=== PATIENT | female | born 1995 | race Caucasian/White ===

== ENCOUNTER 2017-05-22 14:53 | Emergency (ER) | payer BC ==
[~2017-05-22] VITALS: Ht 157.5 cm; Wt 53.0 kg
[2017-05-22 15:05] VITALS: BP 103/61; PULSE 106; RESP 22; O2SAT 96
[2017-05-22] MEDS ORDERED: diphenhydrAMINE HCL 50 MG/ML VIAL IVP ONE (15:15)
[2017-05-22] MEDS ORDERED: FAMOTIDINE 20 MG/2 ML VIAL IV PUSH ONE (15:15)
[2017-05-22] MEDS ORDERED: EPINEPHrine HCL (1:1000) 1 MG/ML VIAL IM ONE (15:15)
[2017-05-22 15:37] LABS: AUTOMATED NEUTROPHIL # 4.8 TH/MM3 (1.8-7.7); BASOPHIL % 0.6 % (0.0-2.0); EOSINOPHIL # 0.2 TH/MM3 (0-0.4); EOSINOPHIL % 2.7 % (0.0-4.0); HEMATOCRIT 42.7 % (35.0-46.0); HEMOGLOBIN 15.1 GM/DL (11.6-15.3); LYMPH % 32.8 % (9.0-44.0); LYMPHOCYTE # 2.8 TH/MM3 (1.0-4.8); MEAN CELL VOLUME 85.8 FL (80.0-100.0); MEAN CORPUSCULAR HEMOGLOBIN 30.4 PG (27.0-34.0); MEAN CORPUSCULAR HGB CONC 35.4 % (32.0-36.0); MONO % 6.9 % (0.0-8.0); MONOCYTE # 0.6 TH/MM3 (0-0.9); PLATELET COUNT 192 TH/MM3 (150-450); RED BLOOD COUNT 4.98 MIL/MM3 (4.00-5.30); RED CELL DISTRIBUTION WIDTH 12.5 % (11.6-17.2); WHITE BLOOD COUNT 8.5 TH/MM3 (4.0-11.0)
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
[2017-05-22 15:48] LABS: BICARBONATE 26.6 MEQ/L (21.0-32.0); CREATININE 0.8 MG/DL (0.50-1.00)
[2017-05-22 16:16] VITALS: BP 137/76; PULSE 84; RESP 18; O2SAT 100
[2017-05-22 16:36] VITALS: PULSE 97; RESP 18; O2SAT 99
[2017-05-22 17:00] VITALS: BP 126/73; PULSE 86; RESP 17; O2SAT 100
[2017-05-22] MEDS ORDERED: EPIP0.3I SQ (17:07)
[2017-05-22] MEDS ORDERED: diphenhydrAMINE HCL 50 MG/ML VIAL IV PUSH ONE (17:15)
[2017-05-22] MEDS ORDERED: HYDR1SYP3 PO (17:22)
== END 2017-05-22 17:43 | disposition home or self-care (01) ==
LOC: NEPC 14:53
DX: T78.2XXA Anaphylactic shock, unspecified, initial encounter (principal); D47.02 Systemic mastocytosis; R07.89 Other chest pain; Z79.899 Other long term (current) drug therapy; Z86.79 Personal history of other diseases of the circulatory system; Z87.19 Personal history of other diseases of the digestive system; Z86.69 Personal history of other diseases of the nervous system and sense organs
CPT/HCPCS: 80048; 83735; 85025; 96372; 96374; 96375; 96376; 99284; J0171; J1200